=== PATIENT | male | born 1970 | race Caucasian/White ===

== ENCOUNTER 2022-03-16 00:27 | Day surgery (SDC) | payer OTHER, SELFPAY ==
[2022-02-06 10:17] VITALS: BMI 19.6
--- NOTE | 2022-02-22 09:25 | SUR.PREOP ---
PT CALLED AND LEFT MESSAGE TO CALL BACK.
--- NOTE | 2022-02-22 09:36 | SUR.PREOP ---
936 PATIENT RETURNED CALL. DISCUSSED PATIENT'S CASE BEING CANCELLED DUE TO DOCTOR'S UNAVAILABILITY. PATIENT VOICED UNDERSTANDING. INFORMED PATIENT OFFICE WILL CALL TO RESCHEDULE.
[2022-03-09 15:36] VITALS: BMI 19.6
[2022-03-16 12:01] VITALS: BP 112/79; PULSE 73; RESP 16; TEMP 36.4; O2SAT 100; BMI 19.4
[2022-03-16] MEDS: LACTATED RINGERS 1,000 ML 150 ML IV CONT (12:19)
--- NOTE | 2022-03-16 13:23 | P.PNAN_ITS ---
Anes - Initial Pre Proc Eval Procedure: Operation Date: 03/16/22 13:30 Proposed Procedures p Screening Colonoscopy - Spencer Whitlock MD Date/Time: 03/16/22 13:23 Surgeon: Spencer Whitlock MD Pre Op Diagnosis: neoplasm screening Patient Data Age: 51 Gender: M Height: 1.7 m Weight: 56.2 kg Last Vital Signs Temp 97.6 F 03/16/22 12:01 Pulse 73 03/16/22 12:01 Resp 16 03/16/22 12:01 BP 112/79 03/16/22 12:01 Pulse Ox 100 03/16/22 12:01 O2 Del Method Room Air 03/16/22 12:01 Allergies Allergy/AdvReac Type Severity Reaction Status Date / Time No Known Allergies Allergy Verified 03/16/22 12:00 Home Medications Medication Instructions Recorded Confirmed Type cetirizine 10 mg tablet (Zyrtec) 10 mg PO DAILY 02/06/22 03/16/22 History Patient hx anesthesia problems: none Family hx anesthesia problems: none Results Review: All pre-operative results and documents have been reviewed as part of the pre- operative evaluation. COUNTS INCLUDE 234 BEDS AT THE [facility] Past Medical History Medical History (Updated 03/16/22 @ 13:25 by Spencer Whitlock MD) Encounter for screening colonoscopy Social History Social History Smoking status: Never smoker Alcohol intake: never Substance use: never Substance use type: does not use Living arrangements: with family Spiritual care concerns: No Anes - Eval Final PreProcedure Day of Procedure 03/16/22 13:23 Patient weight: normal Heart: regular rate and rhythm Lungs: clear to auscultation Airway: Mallampati scale class II Neurological: alert and oriented Last oral intake: >/= 8 hours ASA classification: I Emergent: no Anesthetic plan: proceed Anesthesia type and monitoring: general GIVS and standard monitoring Results Review: All pre-operative results and documents have been reviewed as part of the pre- operative evaluation. Informed Consent: The patient's anesthetic plan and its attendant risks and benefits were discussed with the patient/family/POA. Questions were solicited and answers provided to the satisfaction of the patient/family/POA.
--- NOTE | 2022-03-16 13:24 | PM.HPGS ---
History of Present Illness History of Present Illness Consent: Risks, benefits, and alternatives have been discussed and questions answered. Patient agrees to proceed with procedure. Chief complaint: neoplasm screening Narrative: Mejia Betancourt is a 51 year old male here for first screening colonoscopy Review of Systems Constitutional: Constitutional: Denies headache(s) and Denies weakness Eyes: Eyes: Denies blurry vision ENT: Reports Normal hearing present, Denies headache(s) and Denies neck pain Cardiovascular: Cardiovascular: Denies chest pain and Denies dyspnea Respiratory: Respiratory: Denies dyspnea Gastrointestinal: Gastrointestinal: Reports no additional gastrointestinal complaints Genitourinary: Genitourinary: Denies dysuria Musculoskeletal: Musculoskeletal: Denies neck pain Integumentary/Breasts: Skin/Breast: Denies dry skin Neurologic: Reports Normal hearing present, Denies headache(s) and Denies weakness Psychiatric: Psychiatric: Denies anxiety Endocrine: Endocrine: Denies change in body appearance Hematologic/Lymphatic: Hematologic/Lymphatic: Denies easy bleeding Allergic/Immunologic: Allergic/Immunologic: Denies urticaria PMFSH Past Medical History Medical History (Updated 03/16/22 @ 13:25 by Spencer Whitlock MD) Encounter for screening colonoscopy Social History Social History Smoking status: Never smoker Alcohol intake: never Substance use: never Substance use type: does not use Living arrangements: with family Spiritual care concerns: No Meds Home Medications and Allergies Home Medications Medication Instructions Recorded Confirmed Type cetirizine 10 mg tablet (Zyrtec) 10 mg PO DAILY 02/06/22 03/16/22 History Allergies Allergy/AdvReac Type Severity Reaction Status Date / Time No Known Allergies Allergy Verified 03/16/22 12:00 Vital Signs Vital Signs - 24 hr 03/16/22 12:01 Temperature 97.6 F Pulse Rate 73 Respiratory Rate 16 Blood Pressure 112/79 Pulse Oximetry 100 Oxygen Delivery Room Air Exam Const: General: comfortable and no acute distress HENMT: Face/Nose/Sinus: Normal nares present Eyes: General: appearance normal, both eyes and all related structures Neck: Neck: no JVD Resp: Auscultation: clear to auscultation bilaterally Cardio: Rate: regular rate Rhythm: regular rhythm GI: Inspection: non-distended GI Palp: Yes Soft to palpation Skin: General skin exam: normal color Neuro: General: gait normal Speech: normal speech Extrem: General: normal to inspection Psych: Mental Status: mental status grossly normal Assessment and Plan Assessment and plan (1) Encounter for screening colonoscopy: Code(s): Z12.11 - Encounter for screening for malignant neoplasm of colon Status: Acute Assessment and Plan: colonoscopy
[2022-03-16 13:39] VITALS: BP 83/43; PULSE 68; RESP 16; O2SAT 97
[2022-03-16 13:49] VITALS: BP 94/57; PULSE 60; RESP 18; O2SAT 99
[2022-03-16 13:59] VITALS: BP 94/53; PULSE 58; RESP 18; O2SAT 100
--- NOTE | 2022-03-16 14:07 | SUR.PHASEII ---
1400: DR BROWNE MADE AWARE OF PT'S BLOOD PRESSURE 90s/50s, PT AWAKE AND ALERT. NO NEW ORDERS RECEIVED. SPOUSE AT BEDSIDE
== END 2022-03-16 14:07 | disposition home or self-care (01) ==
PROVIDERS: PCP Emergency Medicine; Visit Provider Internal Medicine Gastroenterology
PROC: 0DJD8ZZ Inspection of Lower Intestinal Tract, Via Natural or Artificial Opening Endoscopic (ICD-10-PCS; CPT 45378; principal; 2022-03-16 13:30)
DX: Z12.11 Encounter for screening for malignant neoplasm of colon (principal)
CPT/HCPCS: 45378; J2704; J7120